=== PATIENT | female | born 1945 | race Caucasian/White ===

== ENCOUNTER → 2016-04-13 | Outpatient (CLI) | payer OTHER ==
--- NOTE | 2016-04-13 18:24 | MA ---
Screening Digital Mammogram Clinical Indications: Routine screening. 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 Technique: Standard cephalocaudal and mediolateral oblique projections are obtained. This examinati on was processed by the [facility] computer-aided detection system. Comparison: Mammograms March 20, 2015, March 19, 2014, March 13, 2013, September 17, 2012, [facility] er 2011, September 30, 2011, April 06, 2011, March 14, 2011, March 07, 2011. Breast density: Type C: The breast tissue is heterogeneously dense, which may obscure small masses. Findings: CAD was reviewed. No suspicious calcifications, masses, or areas of architectural distorti on are identified. Heterogeneously dense breast parenchyma reduces sensitivity for noncalcified mass es. Impression: Negative mammogram. BI-RADS 1. Recommendation: Routine screening is recommended in one year, as long as physical examination is anthony ign in this patient with moderately dense breast parenchyma. [facility] will send a result letter to the patient. Negative mammography should not preclude additional workup of a clinically suspicious finding. The patient's information is entered into a reminder system with a target due date for her next mammo gram.
--- NOTE | 2016-04-13 18:31 | DX ---
DEXA Bone Mineral Densitometry Clinical Indications: 70-year-old female who has a prior history of breast cancer. The patient went t hrough menopause at age 46, and she takes supplementary vitamin D and exercises by walking and partic ipating in yoga. Evaluate for estrogen deficiency, and screen for osteoporosis. Comparison: DEXA scan, dated March 07, 2011. Technique: Bone Mineral Densitometry (BMD) by [employer] X-Ray Absorptiometry (DEXA) was performed utilizing the [employer] scanner. The lumbar spine was evaluated in the AP projection. Both hips and the left forearm were evaluated in the AP projection. Vertebral fracture assessment was also per formed. A FRAX score was calculated. AP Lumbar Spine: The L1, L2, and the L3 vertebral bodies were evaluated. The L4 level was excluded b ecause of some endplate sclerosis. BMD: 1.220 gm/cm2 T-score: 0.3 SD Z-score: 2.2 SD There has been a statistically significant interval decrease in bone mineral density of 5.6% since e previous study. AP Left Hip: Femoral Neck BMD: 0.695 gm/cm2 T-score: -2.5 SD Z-score: -0.6 SD There has been a statistically significant interval decrease in bone mineral density of 5.9% since th e previous study. AP Right Hip: Femoral Neck BMD: 0.682 gm/cm2 T-score: -2.6 SD* Z-score: -0.7 SD There has been a statistically significant interval decrease in bone mineral density of 4.6% since th e previous study. AP Left Forearm, 04/05: BMD: 0.689 gm/cm2 T-score: -2.1 SD Z-score: -0.4 SD There has been no statistically significant interval change. Vertebral Fracture Assessment: There is no new significant fracture deformity. There are old mild jaimie tral wedging from T12 to L4 with ventral traction osteophytes. FRAX Score: The 10 year probability for any major osteoporotic fracture is 22.7%, and for a hip fract ure is 7.8%. Conclusion: Considering the lowest measured site, the patient is osteoporotic*. There have been stati stically significant interval decreases in bone mineral density involving the lumbar spine and the hi ps since 2010. Any bone loss in this patient is probably related to aging or estrogen deficiency. Recommendations: 1. Consider excluding secondary metabolic causes of bone loss (reported to be present in as many as 3 0% of patients with normal Z scores). Basic laboratory evaluation might include blood chemistries (ca lcium, phosphorus, alkaline phosphatase, liver function tests, creatinine, total protein), complete b lood count, serum 25-OH- vitamin D3 level, 24-hour urine calcium, serum TSH and serum PTH. Targete d laboratory testing based on individual patient circumstances might include serum electrophoresis (S PEP or UPEP), anti-tissue transglutaminase antibody levels (celiac disease) , serum bone specific al kaline phosphatase, bone turnover markers (urine, serum) or fibroblast growth factor 23 (FGF 23)(eval uate for unexplained osteomalacia). 2. If secondary causes are excluded, then consider initiating treatment with a bisphosphonate (such a s Fosamax, Actonel, or Boniva). If the patient is unable to use an oral bisphosphonate, another agent such as IV bisphosphonates (Boniva or Reclast), teriparatide (Forteo), a selective estrogen recepto r modulator (Evista), or denosumab ( anti RANKL monoclonal antibody) might be considered. 3. If antiresorptive therapy is initiated and if clinically indicated, consider obtaining a baseline and 3 month followup bone resorption marker (NTX, CTX, TRAP5b or Pyridinoline, deoxypyridinoline) to monitor the therapeutic effect. 4. Supplementing an insufficient diet to achieve total intakes of 1500 mg calcium and 800 Intern[place] al Units of vitamin D daily should be considered. 5. Osteoporosis prevention and treatment begins by modifying risk factors. The patient should be enco uraged to continue participating in a regular exercise program that includes weightbearing and muscle strengthening regimens, as is clinically appropriate. 6. Recommend follow-up DEXA in one year to assess the efficacy of pharmacologic intervention and/or c orrection of appropriate secondary cause(s).
== END ==
LOC: BRMIMAGING 13:36
DX: Z12.31 Encounter for screening mammogram for malignant neoplasm of breast (principal); Z13.820 Encounter for screening for osteoporosis; Z85.3 Personal history of malignant neoplasm of breast; Z78.0 Asymptomatic menopausal state
CPT/HCPCS: G0202

== ENCOUNTER → 2017-04-14 | Outpatient (CLI) | payer OTHER | LOC: BRMIMAGING 10:59 | DX: Z12.31 Encounter for screening mammogram for malignant neoplasm of breast (principal); Z85.3 Personal history of malignant neoplasm of breast ==

== ENCOUNTER → 2018-04-16 | Outpatient (CLI) | payer OTHER | LOC: BRMIMAGING 10:06 | DX: Z12.31 Encounter for screening mammogram for malignant neoplasm of breast (principal); Z85.3 Personal history of malignant neoplasm of breast; Z13.820 Encounter for screening for osteoporosis; Z78.0 Asymptomatic menopausal state; M81.0 Age-related osteoporosis without current pathological fracture ==